=== PATIENT | male | born 1945 | race Caucasian/White ===

== ENCOUNTER 2017-10-24 10:58 | Emergency (ER) | payer OTHER ==
[2017-10-24 11:40] LABS: #Basophils 0.1 thou/uL (0.0-0.2); #Eosinphils 0.2 thou/uL (0.0-0.7); #Lymphocytes 2.2 thou/uL (1.20-3.40); #Monocytes 0.5 thou/uL (0.11-0.59); #Neutrophils 5.1 thou/uL (1.40-6.50); %Basophils 0.7 % (0.0-1.0); %Eosinophils 2.3 % (0.0-10.0); %Lymphocytes 26.9 % (21.0-51.0); %Monocytes 6.6 % (0.0-10.0); %Neutrophils 63.5 % (42.0-75.0); Hemoglobin 11.8 g/dL (14.0-18.0); Mean Corpuscular HGB CONC 34.8 g/dL (32.0-36.0); Mean Corpuscular Hemoglobin 33.6 pg (27.0-31.0); Mean Corpuscular Volume 96.7 fl (80.0-94.0); Mean Platelet Volume 7.4 fL (7.4-10.4); Platelet Count 209 thou/uL (130-400); RBC Distribution Width 13.1 % (11.5-14.5); Red Blood Cell (RBC) Count 3.51 mill/uL (4.70-6.10)
[2017-10-24 12:18] LABS: CKMB 2.2 ng/mL (0-6.6); Troponin I Less than 0.010 ng/mL (< 0.028)
[2017-10-24 12:20] LABS: ALT (SGPT) 26 U/L (8-55); AST (SGOT) 28 U/L (5-34); Alkaline Phosphatase 104 U/L (40-150); Anion Gap 13 mmol/L (10-20); BUN (Urea Nitrogen) 16 mg/dL (8.4-25.7); Bilirubin, Total 0.2 mg/dL (0.2-1.2); CK (CPK) 89 U/L (30-200); Calc. Creatinine Clearance 0 mL/min (70-130); Calcium 8.9 mg/dL (7.8-10.44); Carbon Dioxide 23 mmol/L (23-31); Chloride 103 mmol/L (98-107); Estimated GFR-MDRD 62; Globulin 3.2 g/dL (2.4-3.5); Glucose 158 mg/dL (83-110); Potassium 4.7 mmol/L (3.5-5.1); Protein, Total 6.2 g/dL (5.8-8.1); Sodium 134 mmol/L (136-145)
[2017-10-24] MEDS ORDERED: Ondansetron ODT 4 MG TAB ONE (12:38)
--- NOTE | 2017-10-24 12:50 | RAD ---
PORTABLE CHEST: HISTORY: Chest pain. COMPARISON: 03/10/2013 FINDINGS: The heart size is within normal limits. There are atherosclerotic changes of the aorta. The lungs a re clear of infiltrates. IMPRESSION: No active intrathoracic disease. POS: [facility]
--- NOTE | 2017-10-24 14:36 | CT ---
BRAIN CT WITHOUT IV CONTRAST: Date: 10/24/17 HISTORY: 72-year-old male with history of syncope, weakness to legs. FINDINGS: No focal mass or midline shift. No intra or extra-axial hemorrhage. Atrophy and some chronic white ma tter ischemic changes. IMPRESSION: No acute intracranial process. No mass or bleed. POS: [facility]
== END 2017-10-24 14:33 | disposition home or self-care (01) ==
LOC: ERS 10:58
DX: I95.1 Orthostatic hypotension (principal); F41.9 Anxiety disorder, unspecified; I25.10 Atherosclerotic heart disease of native coronary artery without angina pectoris; F32.9 Major depressive disorder, single episode, unspecified; G90.9 Disorder of the autonomic nervous system, unspecified; I10 Essential (primary) hypertension; Z87.891 Personal history of nicotine dependence
CPT/HCPCS: 70450; 71045; 80053; 82553; 84484; 85025; 93005; 96360; 96361; Q0162

== ENCOUNTER 2018-03-14 23:04 | Emergency (ER) | payer OTHER ==
[2018-03-14 23:46] LABS: Bilirubin Negative (Negative); Blood, Urine Small (Negative); Clarity CLEAR (Clear); Glucose, Urine (Dipstick) 250 mg/dL (Negative); Leukocyte Negative (Negative); Nitrite Negative (Negative); Protein, Urine (Dipstick) 300 mg/dL (Neg-Trace); Specific Gravity, Urine 1.009 (1.002-1.036); pH, Urine 7.5 (5.0-9.0)
[2018-03-14 23:48] LABS: Bacteria/HPF None Seen HPF (None Seen); Hyaline Casts/LPF 0-3 HYALINE CAST LPF (0-3 Hyaline); Pathc Cast-AUWi Flag 0.43 (0-2.49); RBC/HPF 0-3 HPF (0-3); Squamous Epithelial 0-3 HPF (0-3); WBC/HPF None Seen HPF (0-3)
--- NOTE | 2018-03-14 23:52 | RAD ---
PORTABLE AP CHEST X-RAY 03/14/18 HISTORY: Chest pain. Hypertensive crisis. COMPARISON: 10/24/17. FINDINGS: The cardiac silhouette and pulmonary vasculature are within normal limits. There are linear and slight parenchymal bibasilar densities probably related to atelectasis, although pneumonitis could not be entirely excluded. The lungs are otherwise clear. Vascular calcifications a re seen in the thoracic aorta. No other interval change. IMPRESSION: Bibasilar linear densities probably related to atelectasis, although pneumonitis at the left lung bas e cannot be entirely excluded. POS: [facility]
--- NOTE | 2018-03-15 00:02 | CT ---
NONCONTRAST CT HEAD: 03/14/18 HISTORY: Altered mental status. COMPARISON: 10/24/17. FINDINGS: Again noted are chronic small vessel ischemic changes and cerebral volume loss which have not progres sed from the prior exam. There is a low density focus present in the posterior limb of the right inte rnal capsule which was not present on the prior study related to a lacunar infarction of indeterminat e age. There is no evidence of a hemorrhage, mass effect, or midline shift. Mild cerebral volume loss is again present. The ventricular system is normal in size, shape and position. Large mucous retention cyst is present in the left maxillary antrum. [place] lens is not present on the right. Calvarial structures are intact. IMPRESSION: 1. Lacunar infarction of indeterminate age in the posterior limb right internal capsule which wa s not seen on prior exam on 10/24/17. 2. No acute cortical infarction or hemorrhage is seen. 3. Stable chronic small vessel ischemic changes and cerebral volume loss. POS: [facility]
[2018-03-15 00:11] LABS: #Basophils 0.1 thou/uL (0.0-0.2); #Eosinphils 0.2 thou/uL (0.0-0.7); #Lymphocytes 2.6 thou/uL (1.20-3.40); #Monocytes 0.8 thou/uL (0.11-0.59); #Neutrophils 6.2 thou/uL (1.40-6.50); %Basophils 0.6 % (0.0-1.0); %Eosinophils 2.1 % (0.0-10.0); %Lymphocytes 26.2 % (21.0-51.0); %Monocytes 8.1 % (0.0-10.0); Hemoglobin 10.7 g/dL (14.0-18.0); Mean Corpuscular HGB CONC 34.3 g/dL (32.0-36.0); Mean Corpuscular Hemoglobin 32.8 pg (27.0-31.0); Mean Corpuscular Volume 95.5 fL (78.0-98.0); Mean Platelet Volume 6.8 fL (7.4-10.4); Platelet Count 309 thou/uL (130-400); Red Blood Cell (RBC) Count 3.26 mill/uL (4.70-6.10); White Blood Cell (WBC) Count 9.9 thou/uL (4.8-10.8)
[2018-03-15] MEDS ORDERED: hydrALAZINE 20 MG/ML VIAL ONE (00:30)
[2018-03-15 00:41] LABS: ALT (SGPT) 27 U/L (8-55); AST (SGOT) 23 U/L (5-34); Albumin 2.1 g/dL (3.4-4.8); Alkaline Phosphatase 88 U/L (40-150); Anion Gap 7 mmol/L (10-20); BUN (Urea Nitrogen) 19 mg/dL (8.4-25.7); Bilirubin, Total 0.2 mg/dL (0.2-1.2); CK (CPK) 267 U/L (30-200); Calc. Creatinine Clearance 0 mL/min (70-130); Calcium 8.2 mg/dL (7.8-10.44); Carbon Dioxide 25 mmol/L (23-31); Chloride 107 mmol/L (98-107); Estimated GFR-MDRD 51; Globulin 2.8 g/dL (2.4-3.5); Glucose 160 mg/dL (83-110); Lipase 21 U/L (8-78); Potassium 3.4 mmol/L (3.5-5.1); Protein, Total 4.9 g/dL (5.8-8.1); Sodium 136 mmol/L (136-145)
[2018-03-15 00:43] LABS: CKMB 5.4 ng/mL (0-6.6)
[2018-03-15] MEDS ORDERED: Acetaminophen 500 MG TAB ONE (02:41)
--- NOTE | 2018-03-16 11:23 | EKG ---
Test Reason : Blood Pressure : / mmHG Vent. Rate : 070 BPM Atrial Rate : 070 BPM P-R Int : 140 ms QRS Dur : 088 ms QT Int : 450 ms P-R-T Axes : 060 003 063 degrees QTc Int : 486 ms Normal sinus rhythm Prolonged QT Abnormal ECG Confirmed by PAZ PALACIOS, MABEL ([id number]), material expeditor LAVINIA DEXTER ([id number]) on 03/16/2018 11:22:48 AM Referred By: Confirmed By:MABEL MULLEN MD
== END 2018-03-15 03:35 | disposition short-term general hospital (02) ==
LOC: ERS 23:04
DX: I63.81 Other cerebral infarction due to occlusion or stenosis of small artery (principal); I16.0 Hypertensive urgency; I25.10 Atherosclerotic heart disease of native coronary artery without angina pectoris; I10 Essential (primary) hypertension; E11.40 Type 2 diabetes mellitus with diabetic neuropathy, unspecified; E78.5 Hyperlipidemia, unspecified; D64.9 Anemia, unspecified; F41.9 Anxiety disorder, unspecified; F32.9 Major depressive disorder, single episode, unspecified; Z87.891 Personal history of nicotine dependence; Z79.82 Long term (current) use of aspirin; Z79.899 Other long term (current) drug therapy; Z79.4 Long term (current) use of insulin
CPT/HCPCS: 36415; 70450; 71045; 80053; 81003; 81015; 82140; 82553; 83690; 83880; 84443; 84484; 85025; 93005; 96361; 96374; J0360

== ENCOUNTER 2018-06-20 14:11 | Emergency (ER) | payer OTHER ==
[~2018-06-20 14:11] MED LIST: ISOVUE-370 76%-LOCM 1 ML ONE
[2018-06-20 15:07] LABS: #Eosinphils 0.3 thou/uL (0.0-0.7); #Monocytes 0.5 thou/uL (0.11-0.59); %Basophils 0.4 % (0.0-1.0); %Eosinophils 3.9 % (0.0-10.0); %Lymphocytes 29.3 % (21.0-51.0); %Monocytes 7.5 % (0.0-10.0); %Neutrophils 58.9 % (42.0-75.0); Hemoglobin 9.4 g/dL (14.0-18.0); Mean Corpuscular HGB CONC 33.4 g/dL (32.0-36.0); Mean Corpuscular Hemoglobin 32.2 pg (27.0-31.0); Mean Corpuscular Volume 96.4 fL (78.0-98.0); Mean Platelet Volume 7.6 fL (7.4-10.4); Platelet Count 266 thou/uL (130-400); RBC Distribution Width 13.3 % (11.5-14.5); Red Blood Cell (RBC) Count 2.92 mill/uL (4.70-6.10); White Blood Cell (WBC) Count 6.8 thou/uL (4.8-10.8)
--- NOTE | 2018-06-20 15:23 | RAD ---
CHEST ONE VIEW: History: Chest pain. Comparison: 03-14-18 FINDINGS: Cardiac silhouette is magnified by projection. Pulmonary vasculature is unremarkable. Mediastinum is midline with aortic calcification. Nipple shadows overlie the lung bases. No lobar consolidation or e vidence of pneumothorax. site monitor leads overlie the chest. IMPRESSION: 1. Atherosclerosis. 2. No active cardiopulmonary abnormalities are otherwise demonstrated. POS: [facility]
[2018-06-20 15:26] LABS: ALT (SGPT) 23 U/L (8-55); AST (SGOT) 24 U/L (5-34); Albumin 2.8 g/dL (3.4-4.8); Alkaline Phosphatase 99 U/L (40-150); Anion Gap 12 mmol/L (10-20); BUN (Urea Nitrogen) 14 mg/dL (8.4-25.7); Bilirubin, Total Less than 0.2 mg/dL (0.2-1.2); Calc. Creatinine Clearance 0 mL/min (70-130); Carbon Dioxide 19 mmol/L (23-31); Chloride 107 mmol/L (98-107); Estimated GFR-MDRD 44; Globulin 2.7 g/dL (2.4-3.5); Glucose 173 mg/dL (83-110); Lipase 36 U/L (8-78); Potassium 3.6 mmol/L (3.5-5.1); Protein, Total 5.5 g/dL (5.8-8.1); Sodium 134 mmol/L (136-145)
--- NOTE | 2018-06-20 18:50 | CT ---
CTA CHEST WITH 3D VOLUME RENDERING, WITH CONTRAST: 06/20/18 INDICATION: Chest pain. FINDINGS: No significant filling defect of the pulmonary arteries identified. There is slight patchy alveolar d ensity seen within the bilateral pulmonary parenchyma. This could relate to a mild degree of respirat ory motion artifact or alternatively subtle alveolar infiltrate from edema or atypical infection/infl ammatory process. There is no pleural fluid or pneumothorax. Scattered vascular disease including cor onary artery calcium present. There is inflammation of the imaged central upper abdomen which does co nform to the expected confines of the peripancreatic region indicative of acute pancreatitis. The miya ged pancreas reveals homogeneous enhancement within limitations of the arterial phase of the scan. Th ere is a slight fullness of the head and uncinate process region of the pancreas which is surrounded by edema. IMPRESSION: 1. No evidence of pulmonary embolus. 2. Incidental findings to indicate acute pancreatitis of the upper abdomen. Please correlate wit h laboratory values as well as appropriate clinical management and followup as necessary. Findings were telephoned to Day REEDER of ER at time of dictation, 1715 hours, 06/20/18. Code CR POS: [facility]
== END 2018-06-20 20:58 | disposition short-term general hospital (02) ==
LOC: ERS 14:11
DX: R07.2 Precordial pain (principal); K85.90 Acute pancreatitis without necrosis or infection, unspecified; I25.10 Atherosclerotic heart disease of native coronary artery without angina pectoris; I10 Essential (primary) hypertension; E78.5 Hyperlipidemia, unspecified; E11.40 Type 2 diabetes mellitus with diabetic neuropathy, unspecified; D64.9 Anemia, unspecified; F41.9 Anxiety disorder, unspecified; F32.9 Major depressive disorder, single episode, unspecified; Z87.891 Personal history of nicotine dependence; Z79.899 Other long term (current) drug therapy; Z79.4 Long term (current) use of insulin; Z79.82 Long term (current) use of aspirin
CPT/HCPCS: 36415; 36416; 71045; 71275; 80053; 83690; 83880; 84484; 85025; 85379; 93005; Q9966

== ENCOUNTER 2018-07-04 15:08 | Emergency (ER) | payer OTHER | END 2018-07-04 16:17 | disposition home or self-care (01) | LOC: ERS 15:08 | DX: K59.00 Constipation, unspecified (principal); I25.10 Atherosclerotic heart disease of native coronary artery without angina pectoris; E78.5 Hyperlipidemia, unspecified; G62.9 Polyneuropathy, unspecified; F41.9 Anxiety disorder, unspecified; F32.9 Major depressive disorder, single episode, unspecified; E11.9 Type 2 diabetes mellitus without complications; Z87.891 Personal history of nicotine dependence; Z79.899 Other long term (current) drug therapy; Z79.4 Long term (current) use of insulin | CPT/HCPCS: 99283 ==

== ENCOUNTER 2019-04-15 15:52 | Observation (INO) | payer OTHER ==
[2019-04-15 17:19] LABS: #Basophils 0.1 thou/uL (0.0-0.2); #Eosinphils 0.1 thou/uL (0.0-0.7); #Monocytes 0.6 thou/uL (0.11-0.59); #Neutrophils 3.3 thou/uL (1.40-6.50); %Basophils 1.1 % (0.0-1.0); %Eosinophils 2.4 % (0.0-10.0); %Lymphocytes 32.1 % (21.0-51.0); %Monocytes 10.3 % (0.0-10.0); %Neutrophils 54.1 % (42.0-75.0); Hemoglobin 7.8 g/dL (14.0-18.0); Mean Corpuscular HGB CONC 34.8 g/dL (32.0-36.0); Mean Corpuscular Hemoglobin 30.9 pg (27.0-31.0); Mean Corpuscular Volume 88.8 fL (78.0-98.0); Platelet Count 174 thou/uL (130-400); RBC Distribution Width 16.1 % (11.5-14.5); Red Blood Cell (RBC) Count 2.52 mill/uL (4.70-6.10); White Blood Cell (WBC) Count 6.2 thou/uL (4.8-10.8)
[2019-04-15 17:28] LABS: PTT 28.8 SEC (22.9-36.1); Prothrombin Time 13.2 SEC (12.0-14.7)
[2019-04-15 17:45] LABS: ALT (SGPT) 34 U/L (8-55); AST (SGOT) 25 U/L (5-34); Alkaline Phosphatase 105 U/L (40-110); Anion Gap 11 mmol/L (10-20); BUN (Urea Nitrogen) 41 mg/dL (8.4-25.7); Bilirubin, Total 0.2 mg/dL (0.2-1.2); Calc. Creatinine Clearance 0 mL/min (70-130); Calcium 8.2 mg/dL (7.8-10.44); Carbon Dioxide 19 mmol/L (23-31); Chloride 104 mmol/L (98-107); Estimated GFR-MDRD 23; Globulin 2.5 g/dL (2.4-3.5); Glucose 228 mg/dL (83-110); Potassium 4.2 mmol/L (3.5-5.1); Protein, Total 5.5 g/dL (5.8-8.1); Sodium 130 mmol/L (136-145)
[2019-04-15 19:26] LABS: Bacteria/HPF None Seen HPF (None Seen); Bilirubin Negative (Negative); Blood, Urine Trace (Negative); Clarity Clear (Clear); Glucose, Urine (Dipstick) 300 mg/dL (Negative); Leukocyte Negative Leu/uL (Negative); Nitrite Negative (Negative); Protein, Urine (Dipstick) 300 mg/dL (Neg-Trace); RBC/HPF 0-3 HPF (0-3); Squamous Epithelial None Seen HPF (0-3); Urobilinogen Normal mg/dL (Less than 2); WBC/HPF 0-3 HPF (0-3)
[2019-04-15] MEDS ORDERED: Acetaminophen 325 MG TAB PO PRN (21:39)
[2019-04-15] MEDS ORDERED: Senokot S 8.6-50 MG TAB PO PRN (21:39)
[2019-04-15] MEDS ORDERED: Sodium Chloride 0.9% 1,000 ML IV SCH (21:45)
[2019-04-15 23:01] VITALS: BMI 25.5
[2019-04-15] MEDS ORDERED: Dextrose 50% Abboject 50 ML SYRINGE SLOW IVP PRN (23:23)
[2019-04-15] MEDS ORDERED: Dextrose 5% in Water 1,000 ML IV PRN (23:23)
[2019-04-16] MEDS: Melatonin 3 MG TAB PO PRN ×2 (00:01→20:06)
[2019-04-16] MEDS: cloNIDine 0.1 MG TAB PO PRN ×5 (00:01→23:42)
[2019-04-16] MEDS: HumaLOG 300 UNITS/3 ML VIAL SC PRN ×5 (00:01→20:08)
--- NOTE | 2019-04-16 02:42 | HP ---
PRIMARY CARE PHYSICIAN: [facility]. CHIEF COMPLAINT: Anemia and weakness. HISTORY OF PRESENT ILLNESS: Mr. Hale is a 74-year-old male, who reported to the emergency room today from the halfway system after reporting that he has felt very weak over the last several days. He reports that he is on Plavix for stent placement. He denies any chest pain, dizziness, or any abdominal pain. Denied any seeing any blood in his stool. He denies ever having a GI bleed. Reports that he was evaluated for this anemia at [facility] in [facility], had an upper and lower, and reports they did not find anything. He does have a history of chronic kidney disease. Last creatinine we have here is 06/19/2018, which was 1.55, here today, it was 2.75. His hemoglobin was also found to be 7.8, glucose 228, sodium of 130, hematocrit 22.3, and platelets 174. The patient was given 1 unit of packed red blood cells in the emergency room and then admitted to observation unit for further management. PAST MEDICAL HISTORY: He has a past medical history which is pertinent for diabetes type 2, coronary artery disease, cardiac stents x2, hypertension, neuropathy, fibrosarcoma, hep C, hyperlipidemia, anemia, hemorrhoids, cataracts, vision loss. PAST SURGICAL HISTORY: Third toe amputation on the right foot, cardiac stent placement x2. PSYCHIATRIC HISTORY: Anxiety, depression. SOCIAL HISTORY: He is a former tobacco smoker, smoked more than 10 years ago. REVIEW OF SYSTEMS: The patient reports generalized weakness. He denies any chest pain, shortness of breath, palpitations, abdominal pain, or melena. All other systems are reviewed and are negative unless mentioned in the HPI. KNOWN ALLERGIES: None. CURRENT MEDICATIONS: 1. Norvasc 10 mg p.o. daily. 2. Aspirin 81 mg p.o. daily. 3. Atorvastatin 40 mg p.o. at bedtime. 4. Calcitriol 0.25 mcg p.o. daily. 5. Refresh two drops each eye b.i.d. 6. Coreg 25 mg p.o. b.i.d. 7. Plavix 75 mg p.o. daily. 8. Ferrous sulfate 325 mg p.o. b.i.d. 9. Fluoxetine 20 mg p.o. at bedtime. 10. Furosemide 20 mg p.o. b.i.d. 11. Insulin NPH 70/30 twelve units subcu daily, sliding scale a.c. and bedtime. 12. Lactulose 30 mL p.o. b.i.d. 13. Ranitidine 150 mg p.o. b.i.d. 14. Terazosin 2 mg p.o. daily. PHYSICAL EXAMINATION: VITAL SIGNS: Blood pressure 177/80, pulse is 88, respirations 18, pO2 sats are 98%, temperature is 98.6. CONSTITUTIONAL: The patient appears nontoxic, pain-free. He is alert and oriented to person, place, and time. He is pale appearing. HEENT: Head is atraumatic and normocephalic. Eyes, pupils are equally round and reactive to light. Extraocular muscles are intact. ENT; mouth exam is normal. Mucous membranes are moist. NECK: Normal range of motion. Trachea is midline. RESPIRATORY/CHEST: Breath sounds are clear. Chest expansion is equal. CARDIOVASCULAR: Regular rate and rhythm. Heart sounds with a systolic murmur. ABDOMEN: Bowel sounds are heard. Nontender. BACK: Normal range of motion. No tenderness. EXTREMITIES: Upper extremity; normal range of motion. Motor strength is normal. Radial pulses are normal. Lower extremity; normal range of motion. Motor strength is normal. Pedal pulses are normal. NEUROLOGIC: Alert and oriented to person, place, and time. Speech is normal. SKIN: Warm and dry, normal in color. DIAGNOSTIC STUDIES: EKG in the emergency room shows normal sinus rhythm. Conduction normal. ST segments normal. T-waves are normal. PLAN/ASSESSMENT: 1. Anemia with a hemoglobin of 7.8. The patient was started on 1 unit of packed red blood cells in the emergency room. We will check CBC in the morning along with iron studies and ferritin. We have asked for [facility] records from past GI evaluations to be requested. 2. The guaiac stool was negative in the emergency room. 3. History of coronary artery disease. This appears stable. We will continue home medications. 4. Hypertension. Restart home medications. We will trend. 5. Hyperlipidemia. We will restart Lipitor. 6. History of constipation. We will restart the lactulose. 7. Acute on chronic kidney disease and elevated creatinine. We will gently hydrate normal saline 75 mL/hour x1 bag. We will re-evaluate creatinine in the a.m. 8. History of congestive heart failure. Last echocardiogram we have was from 2012. We will repeat. 9. Diabetes. Accu-Cheks a.c. and bedtime, moderate sliding scale. Restart home medications. 10. Gastrointestinal and deep venous thrombosis prophylaxis has been started. 11. Hospital course is dependent on clinical findings. Job ID: [id number]
[2019-04-16 05:39] LABS: #Eosinphils 0.1 thou/uL (0.0-0.7); #Lymphocytes 1.5 thou/uL (1.20-3.40); #Monocytes 0.5 thou/uL (0.11-0.59); #Neutrophils 2.9 thou/uL (1.40-6.50); %Basophils 0.7 % (0.0-1.0); %Eosinophils 2.3 % (0.0-10.0); %Lymphocytes 30.2 % (21.0-51.0); %Monocytes 10.7 % (0.0-10.0); %Neutrophils 56.1 % (42.0-75.0); Hemoglobin 7.9 g/dL (14.0-18.0); Mean Corpuscular HGB CONC 34.9 g/dL (32.0-36.0); Mean Corpuscular Hemoglobin 30.1 pg (27.0-31.0); Mean Corpuscular Volume 86.4 fL (78.0-98.0); Mean Platelet Volume 8.2 fL (7.4-10.4); Platelet Count 153 thou/uL (130-400); RBC Distribution Width 16.3 % (11.5-14.5); Red Blood Cell (RBC) Count 2.62 mill/uL (4.70-6.10); White Blood Cell (WBC) Count 5.1 thou/uL (4.8-10.8)
[2019-04-16 05:52] LABS: ALT (SGPT) 27 U/L (8-55); AST (SGOT) 17 U/L (5-34); Albumin 2.5 g/dL (3.4-4.8); Alkaline Phosphatase 97 U/L (40-110); Anion Gap 9 mmol/L (10-20); BUN (Urea Nitrogen) 38 mg/dL (8.4-25.7); Bilirubin, Total 0.2 mg/dL (0.2-1.2); Calc. Creatinine Clearance 26 mL/min (70-130); Calcium 7.8 mg/dL (7.8-10.44); Carbon Dioxide 21 mmol/L (23-31); Chloride 107 mmol/L (98-107); Estimated GFR-MDRD 23; Globulin 2.1 g/dL (2.4-3.5); Glucose 203 mg/dL (83-110); Iron 127 ug/dL (65-175); Iron Binding Capacity, Total 210 mcg/dL (261-462); Protein, Total 4.6 g/dL (5.8-8.1); Sodium 133 mmol/L (136-145)
[2019-04-16 05:54] LABS: Iron 124 ug/dL (65-175); Iron Binding Capacity, Total 205 mcg/dL (261-462)
[2019-04-16] MEDS: Famotidine 20 MG TAB PO SCH (08:17)
[2019-04-16] MEDS: Calcitriol 0.25 MCG CAP PO SCH (08:17)
[2019-04-16] MEDS: Polyvinyl Alcohol 1.4%/Povidone 0.6% Opth Drops EA EYE SCH ×2 (08:17→20:10)
[2019-04-16] MEDS: Carvedilol 25 MG TAB PO SCH ×2 (08:17→20:06)
[2019-04-16] MEDS: Furosemide 40 MG/4 ML VIAL SLOW IVP SCH (08:17)
[2019-04-16] MEDS: Ferrous Sulfate 325 MG TAB PO SCH ×3 (08:17→20:06)
[2019-04-16] MEDS ORDERED: Non-Formulary Item 1 EACH (Ranitidine Hcl [Ranitidine Hcl] 150 MG) PO SCH (09:00)
--- NOTE | 2019-04-16 15:08 | ULT ---
Venous duplex sonogram bilateral lower extremity HISTORY: Bilateral leg pain and edema. FINDINGS: Each common femoral vein and greater saphenous junction were evaluated along femoral, deep femoral, popliteal, and posterior tibial vein.There is good color and spectral Doppler flow, compression, and augmentation. IMPRESSION: No sonographic evidence of DVT within either lower extremity.
--- NOTE | 2019-04-16 15:40 | ULT ---
Renal sonogram HISTORY: Renal insufficiency. FINDINGS: Right kidney is 11.2 cm length and left is 10.8 cm. There is thinning of the cortex of each kidney. Each renal pelvis is slightly prominent. No focal mass evident. Urinary bladder is well distended. Doppler interrogation confirms that there is jetting of urine into the urinary bladder from each ureter. IMPRESSION: No acute abnormalities are demonstrated. Ureteral jets into the urinary bladder disprove ureteral obstruction. Diffuse renal cortical atrophy.
--- NOTE | 2019-04-16 20:39 | PDOC.EVN ---
Event Note - Event Note Event Note: The patient reports that he continues to feel weak. He says the weakness is mostly in his legs when he walks. He has been using a walker but its gotten more difficult. He reports swelling in his legs and was taking lasix twice daily however didn't notice that much difference in the weakness . Currently his legs dont look swollen because he has been keeping them in bed elevated, but in the long term when he ambulates they are very swollen. He felt no relief from blood transfusion . He was in [facility] hospital recently, had negative EGD and colonoscopy. DM- Complained that they cut his insulin down to 6 units at [facility] which made his blood sugar high and messes up his eyes. 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 - PT consult MARY on CKD - creatinine improved from 2.75 to 2.69 - renal ultrasound unremarkable - possibly cardiorenal, will continue IV diuresis Anemia - s/p 1 unit PRBC - ferritin normal, iron sat high, TIBC low. Possibly difficult to interpret [place] of blood transfusion - B12 and folate normal - will check SPEP and UPEP - had negative EGD and colonoscpy at [facility] recently - will consult hematology Peripheral edema - dopplers negative for DVT - possibly from kidney dysfunction - continue lasix 40 mg IV daily - ECHO pending Hypertensive urgency - BP 199 - d/c IV fluids - resumed coreg and amlodipine Type II DM - blood sugars 100-200 - continue insulin sliding scale
[2019-04-16] MEDS ORDERED: Clopidogrel Bisulfate 75 MG TAB PO SCH (20:45)
[2019-04-16] MEDS ORDERED: Amlodipine 10 MG TAB PO SCH (20:45)
[2019-04-16] MEDS ORDERED: Aspirin 81 mg Enteric Coated Tablet PO SCH (20:45)
[2019-04-16] MEDS ORDERED: HumuLIN 70/30 (300 UNITS/3 ML VIAL) SC SCH (21:00)
[2019-04-16] MEDS ORDERED: Atorvastatin Calcium 40 MG TAB PO SCH (21:00)
[2019-04-16] MEDS ORDERED: FLUoxetine HCl 20 MG CAP PO SCH (21:00)
[2019-04-17] MEDS: Calcitriol 0.25 MCG CAP PO SCH (07:28)
[2019-04-17] MEDS: Furosemide 40 MG/4 ML VIAL SLOW IVP SCH (07:28)
[2019-04-17] MEDS: Ferrous Sulfate 325 MG TAB PO SCH ×2 (07:29→14:23)
[2019-04-17] MEDS: Carvedilol 25 MG TAB PO SCH (07:29)
[2019-04-17] MEDS: Famotidine 20 MG TAB PO SCH (07:29)
[2019-04-17] MEDS: Polyvinyl Alcohol 1.4%/Povidone 0.6% Opth Drops EA EYE SCH (07:29)
[2019-04-17] MEDS ORDERED: Amlodipine 10 MG TAB PO SCH (09:00)
[2019-04-17] MEDS ORDERED: Terazosin HCl 1 MG CAP PO SCH (09:00)
[2019-04-17] MEDS ORDERED: Clopidogrel Bisulfate 75 MG TAB PO SCH (09:00)
[2019-04-17] MEDS ORDERED: Aspirin 81 mg Enteric Coated Tablet PO SCH (09:00)
[2019-04-17 09:26] LABS: Reticulocyte Count 1.4 % (0.5-1.5)
[2019-04-17 09:27] LABS: #Eosinphils 0.1 thou/uL (0.0-0.7); #Lymphocytes 2.2 thou/uL (1.20-3.40); #Monocytes 0.5 thou/uL (0.11-0.59); #Neutrophils 4.5 thou/uL (1.40-6.50); %Basophils 0.5 % (0.0-1.0); %Eosinophils 1.8 % (0.0-10.0); %Lymphocytes 29.4 % (21.0-51.0); %Monocytes 7.2 % (0.0-10.0); Mean Corpuscular HGB CONC 34.9 g/dL (32.0-36.0); Mean Corpuscular Hemoglobin 30.8 pg (27.0-31.0); Mean Corpuscular Volume 88.3 fL (78.0-98.0); Mean Platelet Volume 8.2 fL (7.4-10.4); Platelet Count 152 thou/uL (130-400); RBC Distribution Width 16.6 % (11.5-14.5); Red Blood Cell (RBC) Count 2.58 mill/uL (4.70-6.10); White Blood Cell (WBC) Count 7.3 thou/uL (4.8-10.8)
[2019-04-17 09:45] LABS: Anion Gap 9 mmol/L (10-20); BUN (Urea Nitrogen) 35 mg/dL (8.4-25.7); Calc. Creatinine Clearance 28 mL/min (70-130); Calcium 7.7 mg/dL (7.8-10.44); Carbon Dioxide 21 mmol/L (23-31); Chloride 105 mmol/L (98-107); Estimated GFR-MDRD 25; Glucose 264 mg/dL (83-110); Potassium 3.9 mmol/L (3.5-5.1); Sodium 131 mmol/L (136-145)
[2019-04-17] MEDS: HumaLOG 300 UNITS/3 ML VIAL SC PRN (11:16)
--- NOTE | 2019-04-17 13:25 | CON ---
DATE OF CONSULTATION: REASON FOR CONSULTATION: Chronic anemia. HISTORY OF PRESENT ILLNESS: A 74-year-old male [facility] with diabetes, CAD, status post stents, hepatitis C, hypertension, presenting to the hospital with acute worsening of fatigue and weakness. The patient denies any blood in stool or black stool at this time. Had a negative EGD and colonoscopy recently and his occult stool was negative. He states he was told he was anemic for the last couple of years. He denies any history of liver or kidney disease. He states he was taking oral 3 three times a day and this was stopped for an unknown reason. Upon admission to the hospital, his hemoglobin was 7.8, and he was transfused 1 units of packed red blood cells. Hemoglobin is currently 8.0. The patient had a creatinine of 1.37 in February of 2018, 1.55 in May of 2018, and 2.75 on admission, currently 2.58. His hemoglobin was normal in 2012, it was 11.8 in October of 2017 and has been trending downward since to 10.7 in February of 2018, to 9.4 in May of this year and 7.8 on admission, currently 8.0. Labs also show iron 134, TIBC low 205, ferritin 265, and iron saturation 60%. Folate 7.2, B12 of 447. The patient states that his weakness began approximately a year ago and has continued to get progressively worse. REVIEW OF SYSTEMS: Ten-point review of systems negative except as per HPI. PAST MEDICAL HISTORY: Diabetes; hypertension; CAD, status post stenting; and hepatitis C. PAST SURGICAL HISTORY: Stent placement x2, third toe amputation on right foot. PSYCHIATRIC HISTORY: Anxiety and depression. SOCIAL HISTORY: Former smoker. Currently, an inmate. ALLERGIES: NONE. CURRENT MEDICATIONS: Reviewed. PHYSICAL EXAMINATION: VITAL SIGNS: Temperature 97.6, pulse 63, saturating 98% on room air, blood pressure 151/67 with a max of 199/88 and 204/97 in the ER. GENERAL APPEARANCE: The patient is sitting up in bed, in no acute distress. HEENT: Normocephalic, atraumatic. Sclerae are anicteric. NECK: Supple. Respirations are clear and nonlabored. CARDIOVASCULAR: Regular rate. ABDOMEN: Nontender. NEUROLOGIC: Cranial nerves II through XII are grossly intact. SKIN: No rash. PSYCHIATRIC: Awake, alert, and oriented x3. LABORATORY DATA: Hemoglobin 8.0, white blood cells 7.3, and platelets 152. Reticulocyte 1.4%, immature reticulocyte fraction 0.260. Sodium 131, potassium 3.9, BUN 35, creatinine 2.58, glucose 264, and calcium 7.7. Iron 124, TIBC 205, iron saturation 60%, and ferritin 265. AST 17, ALT 27, and ALP 97. LDH 161. Albumin 2.5. Vitamin B12 of 447, folate 7.20. TSH 1.0 in February of 2018. Urinalysis shows 300 protein. IMAGING DATA: Renal ultrasound shows diffuse cortical atrophy. ASSESSMENT AND PLAN: A 74-year-old male with hypertension, diabetes, and coronary artery disease, presenting with worsening of chronic anemia and kidney disease. Labs show a low normal folic acid, so recommend folate supplementation. Iron studies are most consistent with anemia of chronic disease. However, the iron saturation is 60%, though these were not entirely accurate given that he had just been transfused a unit of blood. His LDH is normal. 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 Will send an EPO level and if less than 500, then he would benefit from Procrit injections with a goal hemoglobin 11 to 12. He likely does not have a primary bone marrow disorder given his normal white blood cells and platelets. Taking into account his renal ultrasound, his uncontrolled hypertension, diabetes, coronary artery disease and renal ultrasound, he likely does have chronic kidney disease, which would explain his anemia. SPEP and UPEP are currently pending and we will follow these up. However, I expect myeloma is lower in the differential given low globulin levels and low calcium. If the patient is stable, it is okay for discharge from a hematologic standpoint and can receive Procrit injections if needed at the [facility]. Job ID: [id number] [facility]TD[facility]
[2019-04-17 15:33] VITALS: BP 165/76; TEMP 98.9
--- NOTE | 2019-04-18 07:26 | DIS ---
DATE OF ADMISSION: 04/15/2019 DATE OF DISCHARGE: 04/17/2019 DISCHARGE DIAGNOSES: 1. Weakness secondary to acute diastolic heart failure. 2. Acute kidney injury on chronic kidney disease. 3. Anemia. 4. Hypertensive urgency. 5. Type 2 diabetes. 6. Hypoglycemia. 7. Hyponatremia. CONSULTATIONS: Dr. Dm James with Hematology. PROCEDURES: None. BRIEF HISTORY OF PRESENT ILLNESS: This is a 74-year-old male with past medical history of type 2 diabetes, CAD, hypertension, neuropathy, hepatitis C, fibrosarcoma, who had presented to the ER with severe weakness over the past few days. The patient states that he was recently at [facility] for anemia and had an upper and lower endoscopy that were unremarkable. The patient reported that he has been having increasing leg swelling while ambulating, which was making it difficult to walk. He denied shortness of breath on exertion. He denied fevers, chills, sore throat, runny nose, or muscle aches. Upon evaluation to the ER, the patient was noted to have a hemoglobin of 7.8. He was initially admitted for possible symptomatic anemia. HOSPITAL COURSE: 1. Anemia: The patient's hemoglobin was noted to be 7.8 on admission. The patient underwent 1 unit of blood transfusion. However, his blood count only improved marginally to 7.9. The patient had a reticulocyte count that was normal and LDH which was normal as well. Iron panel showed a serum iron of 127, TIBC of 210, percent saturation of 60, and ferritin of 265.67. Vitamin B12 was 447 and folate was 7.20. The patient states that he has already had an extensive GI workup, which was negative. Hematology was consulted with regard to his cause of anemia and thought it may just be secondary to CKD. EPO levels were ordered, which are still currently pending. If this is low, the patient may be a candidate for EPO injections as an outpatient. Since folate was borderline low he was started on folic acid supplementation by hematology. The patient did have SPEP and UPEP ordered as well, which are pending. If these come back abnormal, then we will call the patient. On the day of discharge, the patient reported that he was feeling well and ambulated around the hallway without any weakness. The patient can continue follow up as an outpatient and consider getting a repeat CBC in a week. 2. Acute weakness secondary to acute on chronic diastolic heart failure: The patient states that he was told at the long-term to drink an abundant amount of fluid. The patient was initially started on IV fluids in the hospital for his elevated creatinine; however, this was stopped quickly when his blood pressure went up to 200 systolic. The patient was given IV Lasix 40 mg daily since it was thought edema was contributing to weakness. His edema significantly improved and weakness resolved. ECHO showed an ejection fraction of 55% to 60%, suggestive of diastolic dysfunction, moderate mitral regurgitation, and mild tricuspid regurgitation. He was advised on discharge, should not drink more than 2 L of fluid a day and to increase his furosemide to 80 mg p.o. daily. He should get a repeat BMP in a week. 3. Peripheral edema: The patient had Dopplers done that were negative for DVT. He was diuresed with Lasix with improvement of his edema. The patient should keep his legs elevated and consider wearing compression stockings as an outpatient. 4. Hypertensive urgency: The patient's blood pressure had gone up to 199 with IV fluids. His outpatient Coreg and amlodipine were resumed, and his blood pressure improved to the 160s. The patient should follow up with his PCP and have his blood pressure rechecked. 5. Type 2 diabetes: The patient was getting NPH 10 units in the hospital. On the day of discharge, his a.m. blood glucose was 69 and his 10 a.m. glucose was 312. Due to this low morning glucose, the patient's outpatient NPH dose will be decreased to 9 units at night, and since the patient was not receiving any long-acting insulin in the morning in the hospital, he will be resumed on a lower dose of 7 units subcu of 70/30 in the morning. This can be further adjusted in the halfway. 6. Acute kidney injury on CKD: The patient had presented with a creatinine of 2.75. The patient was given a blood transfusion, IV fluids, and was also given IV Lasix, and his creatinine improved to 2.69. Further fluids were held on the and the patient was continued on Lasix. His creatinine improved to 2.58 on the , baseline is around 1.55. Renal ultrasound done showed diffuse renal cortical atrophy. The patient wanted to go home, so he was discharged on lasix 80 mg daily and should get repeat BMP in a week. DISCHARGE PHYSICAL EXAMINATION: VITAL SIGNS: Temperature 98.9, heart rate 66, respiratory rate 20, O2 saturations 98% on room air, and blood pressure 165/76. GENERAL: The patient is alert, awake, and oriented x3. CVS: Regular rate and rhythm with no murmurs, rubs, or gallops. LUNGS: Clear to auscultation bilaterally. ABDOMEN: Positive bowel sounds. Soft, nontender, nondistended. EXTREMITIES: The patient was noted to have 2 to 3+ pitting edema in the lower extremities, more prominent in the ankles. NEUROLOGIC: Gait, the patient was seen ambulating in the hallway with a walker independently. He was seen by Physical Therapy, who felt he was stable to go back to the halfway. PERTINENT LABORATORY DATA: CBC on 04/17: Shows hemoglobin of 8.0/hematocrit 22.8. BMP on 04/17: Shows sodium 131, BUN 35, creatinine 2.58. Iron panel: Shows a serum iron of 124, TIBC of 205, percent saturation of 60, and ferritin of 265.67. LFTs: AST was 17, ALT was 27, alkaline phosphatase was 97. Anemia panel: Vitamin B12 was 447, folate was 7.20, LDH was 161, reticulocyte count was 1.4 with immature reticulocyte fraction of 0.260. UA: Showed 300 of protein and trace blood. Otherwise unremarkable. PERTINENT IMAGING STUDIES: Renal ultrasound on 04/16: Showed diffuse renal cortical atrophy. Venogram of bilateral lower extremities on 04/16: Shows no sonographic evidence of DVT. Echo on 04/16: Shows EF of 55% to 60% with diastolic dysfunction. Mild TR, sclerotic aortic valve, moderate MR. DISCHARGE CONDITION: Stable. The patient can go back to the halfway. ACTIVITY: As tolerated. DIET: Heart healthy diet with a 2 L fluid restriction. DISCHARGE INSTRUCTIONS: The patient should follow up with his PCP in a week. He should have a repeat CBC and BMP in a week. His insulin dose was reduced to 9 units at night and 7 units in the morning. Please adjust this accordingly to his blood sugars. His EPO levels, SPEP, and UPEP are pending for further workup of his anemia. Job ID: [id number] [facility]
[2019-04-18] MEDS ORDERED: Folic Acid 1 MG TAB PO SCH (09:00)
[2019-04-21 12:08] LABS: A/G Ratio 0.9 (0.7-1.7); Albumin 2.2 g/dL (2.9-4.4); Alpha 1 0.2 g/dL (0.0-0.4); Alpha 2 0.8 g/dL (0.4-1.0); Beta 0.7 g/dL (0.7-1.3); Gamma 0.7 g/dL (0.4-1.8); Globulin, Total 2.4 g/dL (2.2-3.9); M-Spike Not Observed g/dL (Not Observed)
== END 2019-04-17 17:14 | disposition home or self-care (01) ==
LOC: ERS 15:52 → 2SW 22:58
PROVIDERS: ADMIT Internal Medicine; ATTEND Internal Medicine
DX: D64.9 Anemia, unspecified (principal); I13.0 Hypertensive heart and chronic kidney disease with heart failure and stage 1 through stage 4 chronic kidney disease, or unspecified chronic kidney disease; E11.22 Type 2 diabetes mellitus with diabetic chronic kidney disease; E11.649 Type 2 diabetes mellitus with hypoglycemia without coma; N18.9 Chronic kidney disease, unspecified; I50.33 Acute on chronic diastolic (congestive) heart failure; N17.9 Acute kidney failure, unspecified; I16.0 Hypertensive urgency; R60.0 Localized edema; E87.1 Hypo-osmolality and hyponatremia; I25.10 Atherosclerotic heart disease of native coronary artery without angina pectoris; F41.9 Anxiety disorder, unspecified; F32.9 Major depressive disorder, single episode, unspecified; E78.5 Hyperlipidemia, unspecified; Z79.4 Long term (current) use of insulin; Z79.82 Long term (current) use of aspirin; Z79.899 Other long term (current) drug therapy; Z87.891 Personal history of nicotine dependence; Z95.5 Presence of coronary angioplasty implant and graft
CPT/HCPCS: 36415; 36416; 36430; 76770; 80048; 80053; 81003; 81015; 82274; 82607; 82668; 82728; 82746; 83540; 83550; 83615; 84165; 84166; 84484; 85025; 85046; 85610; 85730; 86850; 86900; 86901; 93005; 93306; 93970; 96360; 96361; 96374; 96376; G0378; J1815; J1940; P9016

== ENCOUNTER 2019-08-03 23:43 | Emergency (ER) | payer OTHER ==
[2019-08-04] MEDS ORDERED: hydrALAZINE 20 MG/ML VIAL ONE (00:03)
[2019-08-04 00:27] LABS: #Eosinphils 0.1 thou/uL (0.0-0.7); #Lymphocytes 2.1 thou/uL (1.20-3.40); #Monocytes 0.6 thou/uL (0.11-0.59); #Neutrophils 3.1 thou/uL (1.40-6.50); %Basophils 0.2 % (0.0-1.0); %Eosinophils 2.5 % (0.0-10.0); %Monocytes 9.7 % (0.0-10.0); %Neutrophils 52.6 % (42.0-75.0); Hemoglobin 6.4 g/dL (14.0-18.0); Mean Corpuscular HGB CONC 33.6 g/dL (32.0-36.0); Mean Corpuscular Hemoglobin 30.3 pg (27.0-31.0); Mean Corpuscular Volume 90.1 fL (78.0-98.0); Mean Platelet Volume 8.2 fL (7.4-10.4); Platelet Count 138 thou/uL (130-400); RBC Distribution Width 17.2 % (11.5-14.5); Red Blood Cell (RBC) Count 2.12 mill/uL (4.70-6.10); White Blood Cell (WBC) Count 5.9 thou/uL (4.8-10.8)
[2019-08-04 00:42] LABS: ALT (SGPT) 20 U/L (8-55); AST (SGOT) 18 U/L (5-34); Albumin 2.4 g/dL (3.4-4.8); Alkaline Phosphatase 81 U/L (40-110); Anion Gap 9 mmol/L (10-20); BUN (Urea Nitrogen) 36 mg/dL (8.4-25.7); Bilirubin, Total Less than 0.2 mg/dL (0.2-1.2); Calc. Creatinine Clearance 0 mL/min (70-130); Calcium 7.6 mg/dL (7.8-10.44); Carbon Dioxide 16 mmol/L (23-31); Chloride 110 mmol/L (98-107); Estimated GFR-MDRD 15; Globulin 2.7 g/dL (2.4-3.5); Glucose 230 mg/dL (83-110); Potassium 4.4 mmol/L (3.5-5.1); Protein, Total 5.1 g/dL (5.8-8.1); Sodium 131 mmol/L (136-145)
[2019-08-04] MEDS ORDERED: Acetaminophen 500 MG TAB ONE ×2 (00:43→07:30)
[2019-08-04 01:05] LABS: CKMB 6.2 ng/mL (0-6.6)
[2019-08-04] MEDS ORDERED: Furosemide 20 MG/2 ML VIAL ONE (01:12)
--- NOTE | 2019-08-04 07:28 | CT ---
PRELIMINARY REPORT/[facility]/EMERGENCY AFTER HOURS PROCEDURE: This report was discussed with neeta baker RN by Mike Santana on Aug 04, 2019 00:52:00 CDT. Addendum electronically signed by Mike Santana on August 04, 2019 12:52:55 AM CDT EXAM: CT Head Without Intravenous Contrast. CLINICAL HISTORY: Headache, blurred vision TECHNIQUE: Axial computed tomography images of the head/brain without intravenous contrast. COMPARISON: None provided. FINDINGS: BRAIN: No acute intraparenchymal hemorrhage. No mass lesion. No midline shift or extra-axial collection. Bilateral periventricular hypodensity with hypodensity in the white matter of the centrum semiovale a nd jean radiata and left temporoparietal region. No loss of carrion-white matter differentiation or s ulcal effacement. There are calcifications of the intracranial portions of the vertebral and carotid arteries. VENTRICLES: The lateral ventricles, third ventricle and fourth ventricle are mildly dilated. ORBITS: The orbits are unremarkable. Postoperative appearance of both globes. SINUSES AND MASTOIDS: The paranasal sinuses and mastoid air cells are clear. SOFT TISSUES: No significant facial or scalp soft tissue swelling evident. No radiopaque foreign body is seen. BONES: No acute skull fracture. IMPRESSION: 1. No acute intracranial hemorrhage. 2. Dilation of the ventricles. Mild hydrocephalus cannot be entirely ruled out and periventricular hypodensity could reflect subependymal flow of CSF. Alternatively, this is commonly due to age relat ed cerebral volume loss with advanced microvascular ischemic changes. Comparison to prior exams woul d be helpful to evaluate for acuity. Correlate with symptoms and possibly with findings on lumbar pu ncture if clinically indicated. If further imaging evaluation is desired, consider MRI. ELECTRONICALLY SIGNED BY: Isidro Patterson M.D. Aug 04, 2019 12:47:15 AM CDT This report is intended for review by the ordering physician only, in accordance of law. If you recei ve this report in error, please call [facility] at [phone]. FINAL REPORT EMRGENCY AFTER HOURS CT BRAIN: No acute infarct, hemorrhage, or hydrocephalus is present. There is prominent chronic small vessel wh ite matter ischemic change which is mildly progressed from a comparison dated 03/14/2018. Septum korin ucidum and third ventricle are midline. Mastoid air cells and paranasal sinuses are clear. IMPRESSION: I agree with the preliminary report provided by [facility]. No acute intracranial abnormality i s evident. POS: BH
--- NOTE | 2019-08-04 07:43 | RAD ---
CHEST 1 VIEW: INDICATION: Chest pain. COMPARISON: Prior exam dated 06/20/2018. FINDINGS: There are increased interstitial opacities predominantly within the lower lobe. There is mild cardio megaly with mild pulmonary vascular congestion. There is a tiny right pleural effusion. No pneumoth orax is evident. IMPRESSION: Mild cardiomegaly with pulmonary vascular congestion and interstitial prominence may reflect underlyi ng mild congestive heart failure. Continued radiographic followup is recommended. POS: BH
== END 2019-08-04 08:35 | disposition short-term general hospital (02) ==
LOC: ERS 23:43 → EEVIPCON 23:43 → ERS 08-04 08:35
DX: D64.9 Anemia, unspecified (principal); I11.0 Hypertensive heart disease with heart failure; I50.9 Heart failure, unspecified; E11.9 Type 2 diabetes mellitus without complications; I25.10 Atherosclerotic heart disease of native coronary artery without angina pectoris; F32.9 Major depressive disorder, single episode, unspecified; F41.9 Anxiety disorder, unspecified; Z87.891 Personal history of nicotine dependence; E78.5 Hyperlipidemia, unspecified
CPT/HCPCS: 36415; 36430; 70450; 71045; 80053; 82553; 83880; 84484; 85025; 86850; 86900; 86901; 93005; 96374; 96375; J0360; P9016